=== PATIENT | male | born 1985 | race Caucasian/White ===

== ENCOUNTER 2016-05-25 07:02 | Emergency (ER) | payer OTHER ==
[~2016-05-25] VITALS: Ht 180.3 cm; Wt 85.0 kg
[~2016-05-25 07:02] MED LIST: ALPRAZOLAM; CLON0.5T4; LORA2TAB95 PO; PROAIR
[2016-05-25 07:52] VITALS: BP 127/90
== END 2016-05-25 08:42 | disposition home or self-care (01) ==
LOC: ER 07:38
DX: K21.9 Gastro-esophageal reflux disease without esophagitis (principal); Z79.899 Other long term (current) drug therapy; F17.200 Nicotine dependence, unspecified, uncomplicated
CPT/HCPCS: 99281